=== PATIENT | female | born 1980 | race Two or more races ===

== ENCOUNTER → 2019-12-28 13:49 | Outpatient (CLI) | payer OTHER | END | disposition home or self-care (01) | LOC: OFIC 805 12-16 13:00 | PROVIDERS: ATTEND Otolaryngology | DX: R22.1 Localized swelling, mass and lump, neck (principal); R07.0 Pain in throat ==

== ENCOUNTER 2020-02-01 08:17 | Outpatient (CLI) | payer OTHER | END 2020-02-01 16:23 | disposition home or self-care (01) | LOC: OFIC 805 08:17 | PROVIDERS: ATTEND Otolaryngology | DX: R22.1 Localized swelling, mass and lump, neck (principal); R07.0 Pain in throat ==